=== PATIENT | female | born 1930 ===

== ENCOUNTER 2019-02-15 15:59 | Emergency (ER) | payer MEDICARE, OTHER ==
--- NOTE | 2019-02-15 16:30 | ED PDOC ---
HPI: Trauma/Fall - HPI Time Seen by Provider: 02/15/19 16:10 Chief Complaint (Nursing): Trauma Chief Complaint (Provider): Trauma History Per: Patient History/Exam Limitations: no limitations Associated Symptoms: denies: Dizziness, LOC Additional Complaint(s): 89 y/o female brought in by family presents to the ED complaining of head injury. Patient tripped and fell backwards hitting the back of her head. Fall was mechanical not prior dizziness, chest pain, or palpitation. Denies loss of consciousness, dizziness, or any headache. PMD: Wesley Kramer - Fall Fall:Prior To Injury: Tripped Past Medical History Reviewed: Historical Data, Nursing Documentation, Vital Signs Vital Signs: Last Vital Signs Temp 98.3 F 02/15/19 16:03 Pulse 60 02/15/19 16:03 Resp 14 02/15/19 16:03 BP 158/66 H 02/15/19 16:03 Pulse Ox 100 02/15/19 16:03 Primary Care Provider: Wesley Flores - Medical History PMH: Diabetes, HTN - Family History Family History: States: Unknown Family Hx - Allergies Allergies/Adverse Reactions: Allergies Allergy/AdvReac Type Severity Reaction Status Date / Time aspirin Allergy SHORTNESS Verified 02/15/19 16:05 OF BREATH Review of Systems ROS Statement: Except As Marked, All Systems Reviewed And Found Negative Cardiovascular: Negative for: Chest Pain, Palpitations Neurological: Positive for: Other (No loss of consciousness.). Negative for: Headache, Dizziness Physical Exam - Reviewed Nursing Documentation Reviewed: Yes Vital Signs Reviewed: Yes - Physical Exam Appears: Positive for: Well, Non-toxic, No Acute Distress Head Exam: Positive for: ATRAUMATIC, NORMAL INSPECTION, NORMOCEPHALIC Skin: Positive for: Normal Color, Warm, DRY Eye Exam: Positive for: EOMI, Normal appearance, PERRL ENT: Positive for: Normal ENT Inspection Neck: Positive for: Normal (Mild posterior tenderness. No deformity. ), Painless ROM Cardiovascular/Chest: Positive for: Regular Rate, Rhythm. Negative for: Murmur Respiratory: Positive for: Normal Breath Sounds. Negative for: Wheezing Gastrointestinal/Abdominal: Positive for: Normal Exam, Soft. Negative for: Tenderness Back: Positive for: Normal Inspection. Negative for: L CVA Tenderness, R CVA Tenderness Extremity: Positive for: Normal ROM Neurological/Psych: Positive for: Awake, Alert, Normal Tone, Oriented (x3). Negative for: Motor/Sensory Deficits - ECG O2 Sat by Pulse Oximetry: 100 Medical Decision Making Medical Decision Making: Time:1617 Impression: Plan: -CT Spine -CT head --- Scribe Attestation: Documented by Stacia Pisano, acting as a scribe for Robert Cobian. Provider Scribe Attestation: All medical record entries made by the Scribe were at my direction and personally dictated by me. I have reviewed the chart and agree that the record accurately reflects my personal performance of the history, physical exam, medical decision making, and the department course for this patient. I have also personally directed, reviewed, and agree with the discharge instructions and disposition. Disposition - Clinical Impression Clinical Impression: Head injury - Patient ED Disposition Is Patient to be Admitted: No Counseled Patient/Family Regarding: Studies Performed, Diagnosis, Need For Followup, Rx Given - Disposition Referrals: [facility] [Outside] Disposition: Routine/Home Disposition Time: 17:58 Condition: FAIR Instructions: Closed Head Injury Forms: [employer] (Swedish) Print Language: FRISIAN
--- NOTE | 2019-02-15 17:38 | CT ---
Date of service: 02/15/2019 PROCEDURE: CT HEAD WITHOUT CONTRAST. HISTORY: r/o bleed COMPARISON: None available. TECHNIQUE: Axial computed tomography images were obtained through the head/brain without intravenous contrast. Radiation dose: Total exam DLP = 771.86 mGy-cm. This CT exam was performed using one or more of the following dose reduction techniques: Automated exposure control, adjustment of the mA and/or kV according to patient size, and/or use of iterative reconstruction technique. FINDINGS: HEMORRHAGE: No intracranial hemorrhage. BRAIN: Diffuse atrophy with prominence of the ventricles and sulci noted. No mass effect or edema. Intracranial atherosclerosis. Scattered periventricular and subcortical white matter hypodensities, which are nonspecific, but often seen with chronic microvascular ischemic disease. Please note that MRI with diffusion imaging is more sensitive in the detection of acute ischemic event. VENTRICLES: No hydrocephalus. CALVARIUM: Unremarkable. PARANASAL SINUSES: Unremarkable as visualized. No significant inflammatory changes. MASTOID AIR CELLS: Unremarkable as visualized. No inflammatory changes. OTHER FINDINGS: None. IMPRESSION: Generalized atrophy. Nonspecific white matter changes.
--- NOTE | 2019-02-15 18:05 | CT ---
Date of service: 02/15/2019 PROCEDURE: CT Cervical Spine without contrast HISTORY: trauma COMPARISON: None available. TECHNIQUE: Axial computed tomography images were obtained of the cervical spine without the use of intravenous contrast. Coronal and sagittal reformatted images were created and reviewed. Radiation dose: Total exam DLP = 271.99 mGy-cm. This CT exam was performed using one or more of the following dose reduction techniques: Automated exposure control, adjustment of the mA and/or kV according to patient size, and/or use of iterative reconstruction technique. FINDINGS: VERTEBRAE: No fracture. Normal alignment. No destructive bony lesion. DISCS/SPINAL CANAL/NEURAL FORAMINA: Severe degenerative changes primarily at C4-5 and C5-6 and to lesser extent C6-7. The dominant finding is large bar formation at these levels impression upon the thecal sac and spinal cord. At C4-5 the findings are primarily centrally situated. More severe changes at C5-6 extend to the right of the midline resulting in severe impression upon the spinal cord. Less pronounced proliferative changes centrally and to the left of the midline noted at C6-7. Foraminal narrowing at these levels noted as well. Multilevel uncovertebral hypertrophy. PARASPINAL SOFT TISSUES: Unremarkable. OTHER FINDINGS: None. IMPRESSION: No acute findings related to/ accounting for the clinical presentation. 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 Resultant canal stenosis noted as are neural foraminal degenerative changes/narrowing.
[2019-02-15 18:13] VITALS: BP 148/60; PULSE 64; RESP 16; TEMP 98.2; O2SAT 99
== END 2019-02-15 18:07 | disposition home or self-care (01) ==
LOC: H.ER 15:59
DX: S09.90XA Unspecified injury of head, initial encounter (principal); E11.9 Type 2 diabetes mellitus without complications; I10 Essential (primary) hypertension; W01.0XXA Fall on same level from slipping, tripping and stumbling without subsequent striking against object, initial encounter